=== PATIENT | female | born 2000 | race Hispanic/Latino ===

== ENCOUNTER → 2020-06-29 10:26 | Outpatient (CLI) | payer OTHER, SELFPAY | PROVIDERS: Visit Provider Physician Assistant | DX: J02.9 Acute pharyngitis, unspecified (principal) | CPT/HCPCS: 87070; 87147 ==

== ENCOUNTER → 2021-04-14 17:18 | Outpatient (CLI) | payer OTHER, SELFPAY ==
[2021-04-14 17:50] LABS: COVID19 -Nasal RAPID Negative (Negative)
== END ==
PROVIDERS: Referring Provider Nurse Practitioner Family; Visit Provider Nurse Practitioner Family
DX: Z20.822 Contact with and (suspected) exposure to COVID-19 (principal)
CPT/HCPCS: 87635